=== PATIENT | female | born 1985 | race Caucasian/White ===

== ENCOUNTER 2017-03-31 05:19 | Inpatient (IN) | payer BC ==
[2017-03-31] MEDS ORDERED: Oxytocin in LR* 20 UNITS/1,000 ML BAG IVPB SCH (17:00)
[2017-03-31 17:55] LABS: ABS Basophils 0.1 10^3/ul (0-0.2); ABS Eosinophils 0 10^3/ul (0-0.6); ABS Lymphocytes 2.2 10^3/ul (1.0-4.8); ABS Neutrophils 12.6 10^3/ul (1.5-7.7); ABS Nucleated RBC 0 10^3/ul; Eosinophil % 0.3 % (0-6); Hematocrit 35 % (35-47); Hemoglobin 11.8 g/dl (12.0-16.0); Lymphocyte % 13.9 % (25-47); Mean Corpuscular HGB Conc 34 g/dl (31-36); Mean Corpuscular Hemoglobin 32 pg (27-31); Mean Corpuscular Volume 94 fL (80-97); Mean Platelet Volume 9 um3 (7.4-10.4); Nucleated Red Blood Cells % 0; Platelet Count 173 10^3/ul (150-450); Red Cell Distribution Width 14 % (10.5-15); White Blood Count 15.8 10^3/ul (3.5-10.8)
[2017-03-31] MEDS ORDERED: Nalbuphine* 20 MG/ML 1 ML VIAL IV PRN (19:07)
[2017-03-31] MEDS ORDERED: Promethazine INJ(RESTRICTED)* 25 MG/ML 1 ML VIAL IV ONE (19:07)
[2017-03-31] MEDS ORDERED: OBEPIDURAL* 250 ML EPIDURAL ONE (21:50)
[2017-03-31] MEDS ORDERED: Famotidine TAB* 20 MG PO PRN (23:20)
[2017-03-31] MEDS ORDERED: EPHEDrine (Pressors)* 50 MG/ML VIAL IV PUSH PRN ×2 (23:20)
[2017-03-31] MEDS ORDERED: Phenylephrine IV* 40 MCG/ML 10 ML SYRINGE IV PUSH PRN ×2 (23:20)
[2017-03-31] MEDS ORDERED: Sodium Citrate/Citric Acid* 15 ML UDC PO PRN (23:20)
[2017-03-31] MEDS ORDERED: OBEPIDURAL* 250 ML EPIDURAL SCH (23:45)
[2017-04-01] MEDS ORDERED: Misoprostol TAB* 200 MCG ONE (16:15)
[2017-04-01] MEDS ORDERED: Dibucaine 1% 28.35 GM TUBE ONE (16:20)
[2017-04-01] MEDS ORDERED: Witch Hazel PAD* JAR ONE (16:20)
[2017-04-01] MEDS ORDERED: Acetaminophen TAB* 325 MG PO PRN (16:29)
[2017-04-01] MEDS ORDERED: Misoprostol TAB* 200 MCG PR ONE (16:29)
[2017-04-01] MEDS ORDERED: Oxytocin in LR* 20 UNITS/1,000 ML BAG IVPB SCH (17:00)
[2017-04-01] MEDS ORDERED: Ammonia Inhalant* 1 EA AMP ONE (18:16)
[2017-04-01] MEDS: Ibuprofen TAB* 600 MG PO PRN (19:39)
[2017-04-02] MEDS: Docusate CAP* 100 MG PO SCH ×4 (00:09→20:36)
[2017-04-02] MEDS: Ibuprofen TAB* 600 MG PO PRN ×3 (01:42→18:42)
[2017-04-02 07:59] LABS: ABS Basophils 0 10^3/ul (0-0.2); ABS Eosinophils 0 10^3/ul (0-0.6); ABS Lymphocytes 2.3 10^3/ul (1.0-4.8); ABS Monocytes 1.1 10^3/ul (0-0.8); ABS Neutrophils 13.6 10^3/ul (1.5-7.7); ABS Nucleated RBC 0 10^3/ul; Eosinophil % 0.2 % (0-6); Hematocrit 23 % (35-47); Hemoglobin 7.8 g/dl (12.0-16.0); Lymphocyte % 13.3 % (25-47); Mean Corpuscular HGB Conc 34 g/dl (31-36); Mean Corpuscular Hemoglobin 32 pg (27-31); Mean Corpuscular Volume 94 fL (80-97); Mean Platelet Volume 8 um3 (7.4-10.4); Nucleated Red Blood Cells % 0; Platelet Count 148 10^3/ul (150-450); Red Blood Count 2.48 10^6/ul (4.0-5.4); Red Cell Distribution Width 15 % (10.5-15); White Blood Count 17.1 10^3/ul (3.5-10.8)
[2017-04-02] MEDS: Ferrous Gluconate TAB* 324 MG TAB PO SCH ×2 (08:46→20:36)
[2017-04-02] MEDS: Dibucaine 1% 28.35 GM TUBE PR PRN (12:43)
[2017-04-02] MEDS ORDERED: Pseudoephedrine TAB* 60 MG PO PRN (16:11)
[2017-04-02] MEDS: Witch Hazel PAD* JAR TOPICAL PRN (18:43)
[2017-04-03] MEDS: Ibuprofen TAB* 600 MG PO PRN ×2 (02:55→10:21)
[2017-04-03] MEDS: Docusate CAP* 100 MG PO SCH (08:02)
[2017-04-03] MEDS: Ferrous Gluconate TAB* 324 MG TAB PO SCH (08:02)
[2017-04-03] MEDS: Dibucaine 1% 28.35 GM TUBE PR PRN (08:03)
[2017-04-03] MEDS: Witch Hazel PAD* JAR TOPICAL PRN (08:03)
[2017-04-03 11:57] VITALS: BP 118/81
[2017-04-03] MEDS ORDERED: Calcium Carbonate CHEW TAB* 500 MG (TUMS) PO PRN (14:16)
== END 2017-04-03 16:30 | disposition home or self-care (01) | DRG 542 ==
LOC: MCHOBOUT 05:19 → MCHOB 05:53
PROVIDERS: ADMIT Midwife; ATTEND Midwife
PROC: 10E0XZZ Delivery of Products of Conception, External Approach (ICD-10-PCS; principal; 2017-04-01)
PROC: 10907ZC Drainage of Amniotic Fluid, Therapeutic from Products of Conception, Via Natural or Artificial Opening (ICD-10-PCS; 2017-04-01)
PROC: 0DQR0ZZ Repair Anal Sphincter, Open Approach (ICD-10-PCS; 2017-04-01)
DX: O48.0 Post-term pregnancy (principal); O70.20 Third degree perineal laceration during delivery, unspecified; D64.9 Anemia, unspecified; O66.0 Obstructed labor due to shoulder dystocia; O90.81 Anemia of the puerperium; Z37.0 Single live birth; Z3A.40 40 weeks gestation of pregnancy
CPT/HCPCS: 36415; 85025; 86850; 86900; 86901; A9270-GY; J2300; J2550

== ENCOUNTER 2018-03-20 10:03 | Emergency (ER) | payer OTHER ==
[2018-03-20 10:11] VITALS: BP 121/80
--- NOTE | 2018-03-20 10:25 | UC ---
Throat Pain/Nasal Manuel HPI - HPI Summary HPI Summary: 32-year-old woman here with a chief complaint of a nose sore throat cough chest congestion. It's been going on for all started week. Her son has RSV. No fevers rhinorrhea is green. Chest is congested it feels like she can't move the phlegm. No recent fevers no wheezes. When she had a sore throat swallowing made pain worse not swallowing did not exacerbate the pain. Her sore throat is better now. - History of Current Complaint Chief Complaint: UCRespiratory Stated Complaint: CHEST CONGESTION COUGH Time Seen by Provider: 03/20/18 10:15 Hx Last Menstrual Period: 03/18/18 Pain Intensity: 0 - Allergies/Home Medications Allergies/Adverse Reactions: Allergies Allergy/AdvReac Type Severity Reaction Status Date / Time azithromycin Allergy Vomiting Verified 03/20/18 10:12 [From Zithromax Z-Nitesh] flu vaccine Allergy anaph Uncoded 03/20/18 10:11 robitussin ac Allergy Vomiting Uncoded 03/20/18 10:12 PMH/Surg Hx/FS Hx/Imm Hx Previously Healthy: Yes - Surgical History Surgical History: Yes Surgery Procedure, Year, and Place: RIGHT SHOULDER RCT REPAIR 2006 - Family History Known Family History: Positive: Non-Contributory - Social History Alcohol Use: None Substance Use Type: None Smoking Status (MU): Never Smoked Tobacco - Immunization History Most Recent Influenza Vaccination: unknown Most Recent Pneumonia Vaccination: never Review of Systems All Other Systems Reviewed And Are Negative: Yes Constitutional: Positive: Negative Skin: Positive: Negative Eyes: Positive: Negative ENT: Positive: Sore Throat, Nasal Discharge, Sinus Congestion Respiratory: Positive: Cough Cardiovascular: Positive: Negative Gastrointestinal: Positive: Negative Motor: Positive: Negative Neurovascular: Positive: Negative Musculoskeletal: Positive: Negative Neurological: Positive: Negative Psychological: Positive: Negative Is Patient Immunocompromised?: No Physical Exam Triage Information Reviewed: Yes Appearance: No Pain Distress, Well-Nourished, Ill-Appearing - MILD Vital Signs: Initial Vital Signs Temp 97.8 F 03/20/18 10:09 Pulse 87 03/20/18 10:09 Resp 16 03/20/18 10:09 BP 121/80 03/20/18 10:09 Pulse Ox 100 03/20/18 10:09 Vital Signs Reviewed: Yes Eye Exam: Normal Eyes: Positive: Conjunctiva Clear ENT: Positive: Pharyngeal erythema, Nasal congestion, Nasal drainage, TMs normal Neck exam: Normal Neck: Positive: Supple Respiratory Exam: Normal Respiratory: Positive: Lungs clear, Normal breath sounds, No respiratory distress Cardiovascular: Positive: RRR Musculoskeletal Exam: Normal Musculoskeletal: Positive: Strength Intact, ROM Intact Neurological Exam: Normal Neurological: Positive: Alert, Muscle Tone Normal Psychological Exam: Normal Psychological: Positive: Age Appropriate Behavior Skin Exam: Normal Throat Pain/Nasal Course/Dx - Course Course Of Treatment: DISCUSSED VIRAL VERSES BACTERIAL INFECTION AND THE ROLE OF ANTIBIOTICS. THE PATIENT WISHES TO BE ON ANTIBIOTIC AT THIS TIME. - Differential Dx/Diagnosis Provider Diagnosis: Upper respiratory infection, Bronchitis Discharge - Sign-Out/Discharge Documenting (check all that apply): Patient Departure All imaging exams completed and their final reports reviewed: No Studies - Discharge Plan Condition: Stable Disposition: HOME Prescriptions: Albuterol HFA INHALER* [Ventolin HFA Inhaler*] 2 puff INH Q4H PRN #1 mdi PRN Reason: Wheezing Amoxicillin/Clavulanate TAB* [Augmentin TAB 875*] 875 mg PO BID #20 tab Patient Education Materials: Upper Respiratory Infection (ED), Acute Bronchitis (ED) Referrals: Michaela Richardson MD [Primary Care Provider] - Additional Instructions: FOLLOW UP WITH YOUR DOCTOR IF NOT COMPLETELY IMPROVED. GET RECHECKED FOR ANY WORSENING OF YOUR CONDITION OR QUESTIONS OR CONCERNS. - Billing Disposition and Condition Condition: STABLE Disposition: Home
== END 2018-03-20 10:43 | disposition home or self-care (01) ==
LOC: UCEAST 10:03
DX: J06.9 Acute upper respiratory infection, unspecified (principal); J40 Bronchitis, not specified as acute or chronic; Z88.1 Allergy status to other antibiotic agents; Z88.7 Allergy status to serum and vaccine; Z88.8 Allergy status to other drugs, medicaments and biological substances
CPT/HCPCS: 99212; G0463

== ENCOUNTER → 2018-08-21 03:53 | Emergency (ER) | payer OTHER ==
--- NOTE | 2018-08-21 04:05 | ED ---
Upper Extremity Pain - HPI Summary HPI Summary: A 32 y/o female presents to [facility] with a chief complaint of right hand pain today. She reports that she was picking up a tote when she heard a pop. She rates her pain as a 6/10 in severity. - History of Current Complaint Chief Complaint: EDExtremityUpper Stated Complaint: "R HAND INJURY" PER PT Hx Obtained From: Patient Hx Last Menstrual Period: 03/18/18 Mechanism Of Injury: Other - picking up a tote Onset/Duration: Started Hours Ago, Still Present Timing: Constant, Lasting Hours Severity Initially: Moderate Severity Currently: Moderate Pain Location: Hand Character: Unable to Describe Aggravating Factor(s): Nothing Alleviating Factor(s): Nothing Associated Signs & Symptoms: Negative: Fever - Allergies/Home Medications Allergies/Adverse Reactions: Allergies Allergy/AdvReac Type Severity Reaction Status Date / Time azithromycin Allergy Vomiting Verified 08/21/18 04:03 [From Zithromax Z-Nitesh] flu vaccine Allergy anaph Uncoded 08/21/18 04:03 robitussin ac Allergy Vomiting Uncoded 08/21/18 04:03 Home Medications: Home Medications NK [No Home Medications Reported] 08/21/18 [History Confirmed 08/21/18] PMH/Surg Hx/FS Hx/Imm Hx Endocrine/Hematology History: Denies: Hx Diabetes, Hx Thyroid Disease Cardiovascular History: Denies: Hx Hypertension, Hx Pacemaker/ICD Respiratory History: Denies: Hx Asthma, Hx Chronic Obstructive Pulmonary Disease (COPD) GI History: Denies: Hx Ulcer History: Denies: Hx Dialysis, Hx Renal Disease Sensory History: Denies: Hx Hearing Aid Psychiatric History: Denies: Hx Panic Disorder - Surgical History Surgery Procedure, Year, and Place: RIGHT SHOULDER RCT REPAIR 2006 Infectious Disease History: No Infectious Disease History: Denies: Hx Hepatitis, Hx Human Immunodeficiency Virus (HIV), Traveled Outside the [place] in Last 30 Days - Family History Known Family History: Negative: Cardiac Disease, Hypertension, Diabetes - Social History Alcohol Use: None Substance Use Type: Reports: None Smoking Status (MU): Never Smoked Tobacco Review of Systems Negative: Fever Positive: Other - positive: right hand pain All Other Systems Reviewed And Are Negative: Yes Physical Exam - Summary Physical Exam Summary: VITAL SIGNS: Reviewed. GENERAL: Patient is a well-developed and nourished FEMALE who is lying comfortable in the stretcher. Patient is not in any acute respiratory distress. HEAD AND FACE: No signs of trauma. No ecchymosis, hematomas or skull depressions. No sinus tenderness. EYES: PERRLA, EOMI x 2, No injected conjunctiva, no nystagmus. EARS: Hearing grossly intact. Ear canals and tympanic membranes are within normal limits. MOUTH: Oropharynx within normal limits. NECK: Supple, trachea is midline, no adenopathy, no JVD, no carotid bruit, no c- spine tenderness, neck with full ROM CHEST: Symmetric, no tenderness at palpation LUNGS: Clear to auscultation bilaterally. No wheezing or crackles. CVS: Regular rate and rhythm, S1 and S2 present, no murmurs or gallops appreciated. ABDOMEN: Soft, non-tender. No signs of distention. No rebound no guarding, and no masses palpated. Bowel sounds are normal. EXTREMITIES: mild tenderness over 5th MCP with mild pain with motion NEURO: Alert and oriented x 3. No acute neurological deficits. Speech is normal and follows commands. SKIN: Dry and warm Triage Information Reviewed: Yes Vital Signs On Initial Exam: Initial Vitals Temp Pulse Resp BP Pulse Ox 97.4 F 83 18 139/88 100 08/21/18 03:55 08/21/18 03:55 08/21/18 03:55 08/21/18 03:55 08/21/18 03:55 Vital Signs Reviewed: Yes Diagnostics - Vital Signs Vital Signs Temp Pulse Resp BP Pulse Ox 08/21/18 03:55 97.4 F 83 18 139/88 100 - Laboratory Lab Statement: Any lab studies that have been ordered have been reviewed, and results considered in the medical decision making process. - Radiology hand x-ray Radiology Interpretation Completed By: ED Physician Summary of Radiographic Findings: no fracture. Pending official imaging report. Course/Dx - Course Course Of Treatment: A 32 y/o female presents to [facility] with a chief complaint of right hand pain today. She reports that she was picking up a tote when she heard a pop. The physical exam revealed mild tenderness over 5th MCP with mild pain with motion. Hand x-ray shows no fracture. The patient will be discharged home and follow up with orthopedics. The patient is agreeable with this plan. - Diagnoses Provider Diagnoses: Hand injury Discharge - Sign-Out/Discharge Documenting (check all that apply): Patient Departure - DC Patient Received Moderate/Deep Sedation with Procedure: No - Discharge Plan Condition: Stable Disposition: HOME Forms: *Work Release Referrals: Michaela Richardson MD [Primary Care Provider] - (2-3 days) Lydia Loera MD [Medical Doctor] - Additional Instructions: PLEASE RETURN TO THE ED IMMEDIATELY FOR WORSENING OR CONCERNING SYMPTOMS. - Billing Disposition and Condition Condition: STABLE Disposition: Home - Attestation Statements Document Initiated by Amilcar: Yes Documenting Scribe: Billy Solorzano Provider For Whom Amilcar is Documenting (Include Credential): Sang Pike MD Scribe Attestation: I, Billy Solorzano, scribed for Sang Pike MD on 08/21/18 at 2055. Scribe Documentation Reviewed: Yes Provider Attestation: The documentation as recorded by the Billy raygoza accurately reflects the service I personally performed and the decisions made by me, Sang Pike MD Status of Scribe Document: Viewed
[2018-08-21 04:46] VITALS: BP 120/88
== END | disposition home or self-care (01) ==
LOC: ED 03:53
DX: S69.91XA Unspecified injury of right wrist, hand and finger(s), initial encounter (principal); X50.9XXA Other and unspecified overexertion or strenuous movements or postures, initial encounter; Z88.3 Allergy status to other anti-infective agents; Z88.7 Allergy status to serum and vaccine
CPT/HCPCS: 99281